=== PATIENT | male | born 1940 | race Caucasian/White ===

== ENCOUNTER 2022-02-01 18:23 | Observation (INO) | payer MEDICARE, OTHER, SELFPAY ==
[2022-02-01] VITALS (34 sets, daily range): BP systolic 109–135; BP diastolic 46–65; PULSE 45–63; RESP 11–47; TEMP 36.7; O2SAT 83–100
--- NOTE | ~2022-02-01 | XR_ITS ---
EXAMINATION: XR chest 1V portable Exam Date/Time: 02/01/2022 19:10 LOSS PREVENTION RESEARCH ENGINEER HISTORY: CONFUSION/ALTERED MENTAL STATUS. NO CHEST COMPLAINTS Comparison: None available. RESULT: Lines, tubes, and devices: Intact sternotomy wires. Mediastinal surgical clips.. Lungs and pleura: Low lung volumes with crowding. Linear scar/atelectasis in the left lung base. Cardiomediastinal silhouette: Arch calcification, otherwise unremarkable. Other: No acute osseous or upper abdominal finding. IMPRESSION: No acute cardiopulmonary process. Reviewed, dictated and finalized at location K. PREVENTION RESEARCH ENGINEER
--- NOTE | ~2022-02-01 | MR_ITS ---
EXAMINATION: MRA brain wo con DATE: 02/03/2022 10:52 INDICATION: Transient ischemic episode with altered mental status and confusion. TECHNIQUE: Magnetic resonance angiography (MRA) of the brain was performed without intravenous contrast by the 3 D [id number] technique. COMPARISON: Brain MR dated 02/02/2022 FINDINGS: There is normal flow related signal seen within the vertebral, basilar and internal carotid arteries. There is no proximal stenosis. There are no aneurysms identified. Both A1 segments and the left P 1 segments are patent. Flow to the right posterior cerebral artery supplied via the right internal ca rotid artery and a patent right posterior communicating artery Flow in the cerebral arteries is symme tric. Old lacunar infarct in the left caudate nucleus. IMPRESSION: 1. No hemodynamically significant stenosis or aneurysm. 2. Normal anatomic variant of the [place] with the right posterior cerebral artery supplied exclusively via the right internal carotid artery and a patent right posterior communicating artery. IMPRESSION: 1. Reviewed, dictated and finalized at location A. ER LAYER IMPRESSION: 1. No hemodynamically significant stenosis or aneurysm. 2. Normal anatomic variant of the [place] with the right posterior cer ebral artery supplied exclusively via the right internal carotid artery and a p atent right posterior communicating artery. IMPRESSION: 1.
--- NOTE | ~2022-02-01 | MR_ITS ---
EXAMINATION: MR brain/brain stem wo/w con DATE: 02/02/2022 10:00 INDICATION: Altered mental status. Confusion. TECHNIQUE: Magnetic resonance imaging (MRI) of the brain and brainstem was performed without and with 19 cc MultiHance intravenous contrast. Sequences included sagittal and axial T1-weighted SE, axial d iffusion-weighted FS SE, axial T2*-weighted GRE, axial T2-weighted FLAIR Propeller, and axial T2-weig hted Propeller. Apparent diffusion coefficient (ADC) maps were created. COMPARISON: CT dated 02/01/2022. FINDINGS: There is a small chronic lacunar infarction of the left caudate nucleus. Brain parenchymal volume is normal for age. There are scattered mild periventricular and subcortical white matter noriega es, most likely related to small vessel ischemic disease (microangiopathy). No acute infarction or he morrhage. Midline sagittal images are unremarkable. No abnormal contrast enhancement. No masses or ma ss effect. No significant abnormality of the paranasal sinuses. Orbits are symmetric without disconju gate gaze. IMPRESSION: 1. No acute intracranial abnormality. 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 3: Chronic age-related findings. Reviewed, dictated and finalized at location A. R SPONGER
--- NOTE | ~2022-02-01 | US_ITS ---
EXAMINATION: US carotid duplex BI DATE: 02/02/2022 22:53 INDICATION: Concern for transient ischemic episode TECHNIQUE: Grayscale, color Doppler, and pulsed Doppler images of the cervical carotid arteries were obtained. The degree of vessel stenosis is placed in one of the following categories: normal, <50%, 5 0-69%, >=70% but less than near-occlusion, near-occlusion, or total occlusion. Note that percent sten osis relative to normal distal artery lumen diameter is indirectly measured from velocity measurement s as described by Jorge A, et al. Radiology 2003; 229:340-346. COMPARISON: None. FINDINGS: RIGHT: The right common carotid artery (CCA) peak systolic velocity (PSV) is 95 cm/s. The right internal car otid artery (ICA) PSV is 152 cm/s. The right ICA end-diastolic velocity (EDV) is 34 cm/s. The right I CA/CCA PSV ratio is 1.6. Grayscale and color Doppler images including secondary Doppler criteria yiel d an estimate of <50% diameter reduction from plaque in the ICA. The external carotid artery (ECA) PS V is 157 cm/s. There is antegrade flow in the right vertebral artery. LEFT: The left CCA PSV is 123 cm/s. The left ICA PSV is 157 cm/s. The left ICA EDV is 31 cm/s. The left ICA /CCA PSV ratio is 1.3. Grayscale and color Doppler images including secondary Doppler criteria yield an estimate of <50% diameter reduction from plaque in the ICA. The ECA PSV is 173 cm/s. There is ante grade flow in the left vertebral artery. IMPRESSION: 1. <50% stenosis in the right internal carotid artery. 2. <50% stenosis in the left internal carotid artery. Reviewed, dictated and finalized at location A. MAKER
--- NOTE | ~2022-02-01 | CT_ITS ---
EXAMINATION: CT brain wo con DATE: 02/01/2022 19:04 INDICATION: altered mental status . TECHNIQUE: Computed tomography (CT) of the head was performed without intravenous contrast. The mA wa s adjusted according to patient size. Iterative reconstruction technique was employed. The dose-lengt h product was 605.33 mGy-cm. COMPARISON: None FINDINGS: No acute intracranial hemorrhage or extra-axial fluid collection. No hydrocephalus, mass, or herniation. No acute ischemic infarct. Unremarkable dural venous sinus attenuation. No acute osseous abnormality. The aerated spaces are clear. Mild atrophy and chronic white matter change. Atherosclerotic intracranial calcification. Bilateral l ens replacements. IMPRESSION: No acute intracranial process. Reviewed, dictated and finalized at location K. STAPLER WELT
--- NOTE | 2022-02-01 18:47 | ECG_ITS ---
Measurements Intervals [place] Rate: 52 P: 38 NC: 172 QRS: 52 QRSD: 162 T: 60 QT: 429 QTc: 399 Interpretive Statements SINUS BRADYCARDIA RIGHT BUNDLE BRANCH BLOCK [120+ ms QRS DURATION, UPRIGHT V1, 40+ ms S IN I/aVL/V4/V5/V6] NO PREVIOUS ECG AVAILABLE FOR COMPARISON Electronically Signed On 02-02-2022 15:23:35 [employer] by Ruth Ann Hurst M.D.
--- NOTE | 2022-02-01 19:06 | ED.AMS ---
HPI - Altered Mental Status General Chief Complaint: Altered Mental Status Stated Complaint: AMS @ 1700, NOW A & O X3 Time Seen by Provider: 02/01/22 18:50 History of Present Illness HPI narrative: 81-year-old male history of hypertension, high cholesterol, quadruple bypass, chronic kidney disease presents today via EMS with currently at the bedside for altered mental status. Patient's stated about 530 this evening they were eating supper when he became confused with slurred speech. She noticed bilateral upper extremity weakness and called 911. Per RN EMS stated patient was alert and oriented x3 during transfer. Patient is currently confused alert to self. He is able to follow directions. Is aware that he is here to get his brain checked out . Review of Systems Review of Systems: CONSTITUTIONAL: Denies fever, chills, or sweats. EYES: Denies visual changes, redness, or discharge. CARDIOVASCULAR: Denies chest pain, palpitations, or edema. RESPIRATORY: Denies cough or dyspnea. GASTROINTESTINAL: Denies abdominal pain, nausea, vomiting, or diarrhea. GENITOURINARY: Denies dysuria or hematuria. SKIN: Denies rash or itching. MUSCULOSKELETAL: Denies back pain, joint pain, or myalgia. NEUROLOGIC: Endorses confusion. Denies headache, numbness, dizziness, or weakness. PSYCHIATRIC: Denies anxiety or depression. Exam Narrative: GENERAL: Well-appearing, well-nourished, and in no acute distress. HEAD: Normocephalic, atraumatic. EYES: PERRLA and EOMI. NECK: Supple. No adenopathy or masses. No carotid bruits or JVD CHEST: Clear to auscultation. No respiratory distress. No wheezes rales or rhonchi HEART: Regular rate and rhythm. No murmur heard. Normal peripheral pulses. ABDOMEN: Soft, nontender, nondistended, normal active bowel sounds. EXTREMITIES: Normal range of motion. No edema. SKIN: Warm, dry, no rash. NEURO: No focal deficits. Alert and oriented x2. NIH Stroke Scale/Score (NIHSS) from [employer] on 02/01/2022 All calculations should be rechecked by clinician prior to use RESULT SUMMARY: 2 points NIH Stroke Scale INPUTS: 1A: Level of consciousness ?> 0 = Alert; keenly responsive 1B: Ask month and age ?> 1 = 1 question right 1C: 'Blink eyes' & 'squeeze hands' ?> 0 = Performs both tasks 2: Horizontal extraocular movements ?> 0 = Normal 3: Visual banerjee ?> 0 = No visual loss 4: Facial palsy ?> 0 = Normal symmetry 5A: Left arm motor drift ?> 0 = No drift for 10 seconds 5B: Right arm motor drift ?> 0 = No drift for 10 seconds 6A: Left leg motor drift ?> 0 = No drift for 5 seconds 6B: Right leg motor drift ?> 0 = No drift for 5 seconds 7: Limb Ataxia ?> 0 = No ataxia 8: Sensation ?> 0 = Normal; no sensory loss 9: Language/aphasia ?> 0 = Normal; no aphasia 10: Dysarthria ?> 1 = Mild-moderate dysarthria: slurring but can be understood 11: Extinction/inattention ?> 0 = No abnormality PSYCH: Normal mood and affect. Course Reevaluation(s) Reevaluation #1: Patient back to baseline NIH Stroke Scale/Score (NIHSS) from [employer] on 02/01/2022 All calculations should be rechecked by clinician prior to use RESULT SUMMARY: 0 points NIH Stroke Scale INPUTS: 1A: Level of consciousness ?> 0 = Alert; keenly responsive 1B: Ask month and age ?> 0 = Both questions right 1C: 'Blink eyes' & 'squeeze hands' ?> 0 = Performs both tasks 2: Horizontal extraocular movements ?> 0 = Normal 3: Visual banerjee ?> 0 = No visual loss 4: Facial palsy ?> 0 = Normal symmetry 5A: Left arm motor drift ?> 0 = No drift for 10 seconds 5B: Right arm motor drift ?> 0 = No drift for 10 seconds 6A: Left leg motor drift ?> 0 = No drift for 5 seconds 6B: Right leg motor drift ?> 0 = No drift for 5 seconds 7: Limb Ataxia ?> 0 = No ataxia 8: Sensation ?> 0 = Normal; no sensory loss 9: Language/aphasia ?> 0 = Normal; no aphasia 10: Dysarthria ?> 0 = Normal 11: Extinction/inattention ?> 0 = No abnormality Date: 02/01/22 Time: 20:04 Consultations
--- NOTE | 2022-02-01 19:08 | PC.NURSE ---
Patient taken CT scan
[2022-02-01 19:49] LABS: Basophils Percent Auto 0.4 % (0.2-1.2); Eosinophils Absolute Auto 0.1 K/mm3 (0-0.3); Eosinophils Percent Auto 1.4 % (0-4.4); Hematocrit 38.1 % (42.0-52.0); Hemoglobin 12.8 g/dL (14.0-18.0); Immature Granulocyte Absolute 0.01 K/mm3 (0.00-0.031); Immature Granulocyte Percent A 0.1 % (0-0.5); Lymphocytes Absolute Auto 1.38 K/mm3 (0.9-3.2); Lymphocytes Percent Auto 19.5 % (18.3-44.2); Mean Corpuscular HGB Conc 33.6 g/dl (32-36); Mean Corpuscular Hemoglobin 29.8 pg (26-34); Mean Corpuscular Volume 88.6 fl (80-100); Mean Platelet Volume 9.9 fl (7.4-10.4); Monocytes Absolute Auto 0.7 K/mm3 (0.1-0.6); Monocytes Percent Auto 9.2 % (2.6-8.5); Neutrophils Absolute Auto 4.9 K/mm3 (1.3-6.7); Neutrophils Percent Auto 69.4 % (45.5-73.1); Platelet Count Result 212 k/mm3 (150-375); Red Cell Distribution Width 12.3 % (11.5-14.5); White Blood Count 7.1 K/mm3 (4.5-10.0)
--- NOTE | 2022-02-01 19:57 | PC.NURSE ---
Patient bedside glucose 98
[2022-02-01 19:58] LABS: Glucose Point of Care 98 mg/dl (65-105)
[2022-02-01 19:59] LABS: Ethanol < 10 mg/dL (<10)
[2022-02-01 20:03] LABS: Prothrombin Time 13.2 Seconds (11.1-14.7)
[2022-02-01 20:04] LABS: Partial Thromboplastin Time 29.6 SECONDS (22.3-36.8)
[2022-02-01 20:14] LABS: Alanine Aminotransferase 31 U/L (6-50); Albumin Level 4.1 g/dL (3.5-5.1); Alkaline Phosphatase 54 U/L (38-126); Anion Gap 8 mmol/L (8-16); Aspartate Amino Transferase 30 U/L (17-59); Bilirubin,Total 0.8 mg/dL (0.2-1.3); Blood Urea Nitrogen 35 mg/dL (9-20); Carbon Dioxide 23 mmol/L (22-30); Chloride 106 mmol/L (98-107); Estimated Glomerular Filt Rate 24; Glucose 97 mg/dL (65-110); Potassium 4.1 mmol/L (3.4-5.0); Sodium 137 mmol/L (137-145)
[2022-02-01 20:26] LABS: Troponin I < 0.012 ng/mL (0.000-0.034)
[2022-02-01 20:51] LABS: Appearance Urine Clear (Clear); Bilirubin Urine Negative (Negative); Blood Urine Negative (Negative); Color Urine Yellow (Yellow); Glucose Urine UA Negative (Negative); Ketones Urine Negative (Negative); Leukocyte Esterase Ur Negative LEU/UL (Negative); Nitrate Urine Negative (Negative); Protein Urine Negative (Negative); Urobilinogen Urine 0.2 mg/dL (<2.0); pH Urine 5.5 (5.0-9.0)
[2022-02-01 20:55] LABS: Alanine Aminotransferase 32 U/L (6-50); Albumin Level 4.1 g/dL (3.5-5.1); Alkaline Phosphatase 59 U/L (38-126); Anion Gap 9 mmol/L (8-16); Aspartate Amino Transferase 33 U/L (17-59); Bilirubin,Total 0.9 mg/dL (0.2-1.3); Blood Urea Nitrogen 36 mg/dL (9-20); Calcium 9.1 mg/dL (8.4-10.2); Carbon Dioxide 22 mmol/L (22-30); Chloride 109 mmol/L (98-107); Estimated Glomerular Filt Rate 24; Glucose 99 mg/dL (65-110); Potassium 4.1 mmol/L (3.4-5.0); Sodium 140 mmol/L (137-145)
[2022-02-01 20:56] LABS: Mucus Urine Rare /lpf; RBC Urine 0-2 /hpf (0-2); WBC Urine 0-3 /hpf
[2022-02-01 20:57] LABS: Add Urine Microscopic? NO
[2022-02-01 21:24] LABS: INR 1.1; Partial Thromboplastin Time 30.4 SECONDS (22.3-36.8); Prothrombin Time 13.4 Seconds (11.1-14.7)
[2022-02-01 22:23] LABS: SARS-CoV-2 RNA PCR Negative
[2022-02-02] VITALS (75 sets, daily range): BP systolic 72–146; BP diastolic 43–78; PULSE 44–74; RESP 13–32; TEMP 36.4–36.8; O2SAT 85–100; BMI 30.4
--- NOTE | 2022-02-02 01:22 | PC.NURSE ---
Patient to be admitted. Awaiting bed assignment.
--- NOTE | 2022-02-02 03:42 | PC.NURSE ---
Patient resting well. Awakens easily. Denies any discomfort.
--- NOTE | 2022-02-02 04:14 | PM.IMHP ---
H&P: HPI History of Present Illness Date/Time: 02/02/22 04:14 Chief Complaint: altered mental status Narrative: This is an 81-year-old male with past medical history significant for coronary artery disease status post coronary artery bypass graft, chronic kidney disease, hypertension. Patient was brought to the emergency room after having lunch in the afternoon he had an episode of speech disturbance in which he was mumbling words and he became slightly unresponsive looking down, however no loss of consciousness, no syncope. patient has been in his usual state of health prior to this denies any fevers, rigors, chills, cough, sputum production, chest pain, abdominal pain, diarrhea, nausea, vomiting, no focal weakness although it states that his left arm feels weaker, no gait disturbance. Preliminary workup was significant for: head CT was reported asFINDINGS: No acute intracranial hemorrhage or extra-axial fluid collection. No hydrocephalus, mass, or herniation. No acute ischemic infarct. Unremarkable dural venous sinus attenuation. No acute osseous abnormality. The? aerated spaces are clear. Mild atrophy and chronic white matter change. Atherosclerotic intracranial calcification. Bilateral lens replacements. IMPRESSION:? No acute intracranial process. basic metabolic profile was significant for a creatinine of 2.6 no prior value currently available for comparison a chest x-ray was reported as: IMPRESSION: No acute cardiopulmonary process. patient tested negative for COVID Review of Systems Review of Systems: altered mental status speech disturbance Constitutional: Constitutional: Denies chills, Denies fever(s), Denies malaise and Denies night sweats Eyes: Eyes: Reports diplopia ENT: Denies dysphagia, Denies vertigo, Denies dizziness, Denies odynophagia and Denies disequilibrium Cardiovascular: Cardiovascular: Denies chest pain, Denies syncope, Denies leg edema, Denies lightheadedness and Denies palpitations Respiratory: Respiratory: Denies chest congestion, Denies cough and Denies excessive phlegm production Gastrointestinal: Gastrointestinal: Denies abdominal pain, Denies dyspepsia, Denies heartburn, Denies diarrhea, Denies nausea and Denies vomiting Genitourinary: Genitourinary: Reports no additional male genitourinary complaints, Reports as per HPI and Denies dysuria Musculoskeletal: Musculoskeletal: Reports muscle weakness Integumentary/Breasts: Skin/Breast: Denies rash Neurologic: Denies vertigo, Denies dizziness, Denies focal weakness and Denies Sensory deficit (Neuro) Psychiatric: Psychiatric: Reports no additional psychiatric complaints and Reports as per HPI Endocrine: Endocrine: Denies cold intolerance, Denies flushing, Denies heat intolerance, Denies polyphagia, Denies polydipsia and Denies palpitations Hematologic/Lymphatic: Hematologic/Lymphatic: Reports no additional hematologic/lymphatic complaints and Reports as per HPI Allergic/Immunologic: Allergic/Immunologic: Reports no additional allergic/immunologic complaints and Reports as per HPI Meds Vital Signs Vital Signs - 24 hr 02/01/22 18:37 02/01/22 18:39 02/01/22 18:40 Temperature 98.1 F Pulse Rate 61 61 61 Respiratory Rate 16 21 H 19 Blood Pressure 125/54 L 125/54 L Pulse Oximetry 99 99 98 Oxygen Delivery Room Air 02/01/22 18:45 02/01/22 19:05 02/01/22 19:06 Temperature Pulse Rate 56 L 57 L 57 L Respiratory Rate 16 11 L 25 H Blood Pressure 134/60 Pulse Oximetry 98 99 100 Oxygen Delivery 02/01/22 19:15 02/01/22 19:30 02/01/22 19:31 Temperature Pulse Rate 55 L 57 L 54 L Respiratory Rate 21 H 19 47 H Blood Pressure 128/53 L Pulse Oximetry 99 Oxygen Delivery 02/01/22 19:45 02/01/22 20:00 02/01/22 20:01 Temperature Pulse Rate 52 L 53 L 54 L Respiratory Rate 24 H 19 23 H Blood Pressure 127/46 L Pulse Oximetry 100 100 99 Oxygen Delivery 02/01/22 20:15 02/01/22 20:
[2022-02-02 06:58] LABS: Basophils Percent Auto 0.4 % (0.2-1.2); Eosinophils Absolute Auto 0.2 K/mm3 (0-0.3); Eosinophils Percent Auto 2.1 % (0-4.4); Hematocrit 35.9 % (42.0-52.0); Hemoglobin 12.3 g/dL (14.0-18.0); Immature Granulocyte Absolute 0.03 K/mm3 (0.00-0.031); Immature Granulocyte Percent A 0.4 % (0-0.5); Lymphocytes Absolute Auto 1.59 K/mm3 (0.9-3.2); Lymphocytes Percent Auto 20.6 % (18.3-44.2); Mean Corpuscular HGB Conc 34.3 g/dl (32-36); Mean Corpuscular Hemoglobin 29.9 pg (26-34); Mean Corpuscular Volume 87.1 fl (80-100); Mean Platelet Volume 9.7 fl (7.4-10.4); Monocytes Absolute Auto 0.8 K/mm3 (0.1-0.6); Neutrophils Absolute Auto 5.2 K/mm3 (1.3-6.7); Neutrophils Percent Auto 66.5 % (45.5-73.1); Platelet Count Result 195 k/mm3 (150-375); Red Blood Count 4.12 M/mm3 (4.6-6.20); Red Cell Distribution Width 12.2 % (11.5-14.5); White Blood Count 7.7 K/mm3 (4.5-10.0)
[2022-02-02 07:11] LABS: Anion Gap 6 mmol/L (8-16); Blood Urea Nitrogen 35 mg/dL (9-20); Calcium 8.7 mg/dL (8.4-10.2); Carbon Dioxide 22 mmol/L (22-30); Chloride 108 mmol/L (98-107); Estimated Glomerular Filt Rate 29; Glucose 84 mg/dL (65-110); Potassium 3.8 mmol/L (3.4-5.0); Sodium 136 mmol/L (137-145)
--- NOTE | 2022-02-02 08:05 | PC.NURSE ---
dietary contacted for breakfast tray. pt denies other needs
--- NOTE | 2022-02-02 10:04 | PC.NURSE ---
return from mri
--- NOTE | 2022-02-02 10:48 | WPDNEURCNPN ---
Assessment and Plan Assessment and plan (1) TIA (transient ischemic attack): Code(s): G45.9 - Transient cerebral ischemic attack, unspecified Status: Acute (2) Altered mental status: Code(s): R41.82 - Altered mental status, unspecified Status: Acute (3) Coronary artery disease: Code(s): I25.10 - Atherosclerotic heart disease of [place] coronary artery without angina pectoris Status: Acute (4) CKD (chronic kidney disease): Code(s): N18.9 - Chronic kidney disease, unspecified Status: Acute Plan Odalys Rea is a 81 year old male with a history of HTN, HLD, CKD, quadruple bypass who presented due to altered mental status with transient episode of slurred speech and bilateral upper extremity weakness that self-resolved. MRI negative for acute stroke. Concern for TIA. - MRA brain w/o contrast and carotid doppler studies - Surface echo with bubble study - Continue ASA 81mg daily - Continue Lipitor 80 mg daily - Discussed no until 6 months event free Consult date: 02/02/22 Reason for consult: TIA HPI: Odalys Rea is a 81 year old male with a history of HTN, HLD, CKD, quadruple bypass who presented due to altered mental status. Yesterday around 530PM while patient was eating dinner, noted that he appeared confused with slurred speech and had bilateral upper extremity weakness. Patient has no recollection of the episode. asked him to smile and noted that his face was symmetric. She then asked him to squeeze her hands and she noted that both sides were weak. EMS was called and they noted patient to be AOx3. He was taken to [facility] ED where he was AOx2 on arrival. His BP was in the 120s systolic. His initial NIH was 2 due to slurred speech and difficulty answer question, but repeat NIH was 0 and patient returned back to baseline. CT head was negative for acute process. His GFR is 29 so CTA brain/carotid was not obtained. MRI brain has been completed and showed no evidence of acute stroke, but does have old left lacunar infarct. Patient takes daily ASA 81mg and Lipitor 80mg daily. Review of Systems Constitutional: Constitutional: Reports weakness Eyes: Eyes: Reports no additional eye complaints ENT: Reports system reviewed and no additional complaints, except as documented Cardiovascular: Cardiovascular: Reports no additional cardiovascular complaints Respiratory: Respiratory: Reports no additional respiratory complaints Gastrointestinal: Gastrointestinal: Reports no additional gastrointestinal complaints Genitourinary: Genitourinary: Reports no additional male genitourinary complaints Musculoskeletal: Musculoskeletal: Reports no additional musculoskeletal complaints Integumentary/Breasts: Skin/Breast: Reports system reviewed and no additional complaints, except as docu Neurologic: Reports as per HPI Psychiatric: Psychiatric: Reports no additional psychiatric complaints PMFSH Social History Social History Smoking status: Former smoker Lack of Transportation: No Lack of Food: Never True Current Housing: I Have Housing Concerned About Future Housing: No Difficulty Paying Gas/Electric Bills: No Difficulty Paying for Meds: No Currently Unemployed: No Education: High School Diploma/GED Difficulty w/ Childcare or Family Care: No Spiritual care concerns: No Meds Home Medications and Allergies Home Medications Medication Instructions Recorded Confirmed Type atenolol 50 mg tablet 25 mg PO DAILY 02/02/22 02/02/22 History atorvastatin 80 mg tablet 80 mg PO DAILY 02/02/22 02/02/22 History calcitriol 0.5 mcg capsule 0.5 mcg PO DAILY 02/02/22 02/02/22 History ergocalciferol (vitamin D2) 1,250 1,250 mcg PO MONTHLY 02/02/22 02/02/22 History mcg (50,000 unit) capsule ezetimibe 10 mg tablet 10 mg PO DAILY 02/02/22 02/02/22 History furosemide 20 mg tablet 20 mg PO DAILY 02/02/22 02/02/22 H
--- NOTE | 2022-02-02 12:26 | PC.NURSE ---
neurology at bedside
--- NOTE | 2022-02-02 14:07 | ADMGEN ---
This patient, Odalys Rea, was admitted to Medical Room 252-01. Patient/family oriented to hospital policies and general routines including ID bracelet, bed and alarms, visiting hours, pain management, procedures, bathroom and other care routines, personal items, smoking policy, room service/diet, and visiting hours. Information on how to activate the Rapid Response Team has been discussed. Patient/Family are encouraged to report perceived risks to care and to ask questions if they do not understand what they are told or what they should do.
--- NOTE | 2022-02-02 18:23 | PM.IMPN ---
Progress Note: A&P Assessment and Plan (1) Altered mental status: Code(s): R41.82 - Altered mental status, unspecified Status: Acute Assessment and Plan: now resolved patient is back to his baseline CT of the head reviewed MRI of the brain pending 02/02/2022 interval history: patient remains clinically stable seen by Neurology recommended to further evaluate following tests. MRA brain w/o contrast and carotid doppler studies - Surface echo with bubble study - Continue ASA 81mg daily - Continue Lipitor 80 mg daily patient MRI of brain is normal, patient is clinically stable pending cardiac echo which will be done tomorrow, will monitor patient. (2) TIA (transient ischemic attack): Code(s): G45.9 - Transient cerebral ischemic attack, unspecified Status: Acute Assessment and Plan: patient likely had transient episode continue to monitor (3) CKD (chronic kidney disease): Code(s): N18.9 - Chronic kidney disease, unspecified Status: Acute Assessment and Plan: unknown prior values for creatinine patient usually follows up at outside hospital (4) Coronary artery disease: Code(s): I25.10 - Atherosclerotic heart disease of [place] coronary artery without angina pectoris Status: Acute Assessment and Plan: status post coronary artery bypass graft Subjective Date/time seen: 02/02/22 18:23 altered mental status HPI-Narrative: ?This is an 81-year-old male with past medical history significant for coronary artery disease status post coronary artery bypass graft, chronic kidney disease, hypertension.? Patient was brought to the emergency room after having lunch in the afternoon he had an episode of? speech disturbance in which he was mumbling words and he became slightly unresponsive looking down, however no loss of consciousness, no syncope.? patient has been in his usual state of health prior to this denies any fevers, rigors, chills, cough, sputum production, chest pain, abdominal pain, diarrhea, nausea, vomiting, no focal weakness although it states that his left arm feels weaker, no gait disturbance.??Preliminary workup was significant for: head CT was reported asFINDINGS: No acute intracranial hemorrhage or extra-axial fluid collection. No hydrocephalus, mass, or herniation. No acute ischemic infarct. Unremarkable dural venous sinus attenuation. No acute osseous abnormality. The? aerated spaces are clear. Mild atrophy and chronic white matter change. Atherosclerotic intracranial calcification. Bilateral lens replacements. 02/02/2022 interval history: patient remains clinically stable seen by Neurology recommended to further evaluate following tests. MRA brain w/o contrast and carotid doppler studies - Surface echo with bubble study - Continue ASA 81mg daily - Continue Lipitor 80 mg daily patient MRI of brain is normal, patient is clinically stable pending cardiac echo which will be done tomorrow, will monitor patient. Review of Systems Constitutional: Constitutional: Denies chills, Denies fever(s), Denies malaise and Denies night sweats Exam Narrative: Patient is comfortable, NAD HEENT: eyes are clear and none icteric LUNGS:CTA HEART: RR S1S2 ABD: BS+, Soft and nontender Lower extremities: no edema SKIN: nonjaundiced Neuro: grossly intact. Objective Data Vital Signs Vital Signs: Vital Signs - 24 hr 02/01/22 18:37 02/01/22 18:39 02/01/22 18:40 Temperature 98.1 F Pulse Rate 61 61 61 Respiratory Rate 16 21 H 19 Blood Pressure 125/54 L 125/54 L Pulse Oximetry 99 99 98 Oxygen Delivery Room Air 02/01/22 18:45 02/01/22 19:05 02/01/22 19:06 Temperature Pulse Rate 56 L 57 L 57 L Respiratory Rate 16 11 L 25 H Blood Pressure 134/60 Pulse Oximetry 98 99 100 Oxygen Delivery 02/01/22 19:15 02/01/22 19:30 02/01/22 19:31 Temperature Pulse Rate 55 L 57 L 54 L Respiratory Rate 21 H 19 47 H Blo
[2022-02-03] VITALS (7 sets, daily range): BP systolic 138–140; BP diastolic 47–62; PULSE 45–78; RESP 16–17; TEMP 36.6–37.2; O2SAT 98–100
--- NOTE | 2022-02-03 12:45 | ECHO_ITS ---
Patient Info Name: Odalys Rea Age: 81 years : 1940 Gender: Male Ht: 66 in Wt: 188 lbs BSA: 2.02 m2 HR: 65 bpm BP: 138 / 62 mmHg Heart Rhythm: Sinus Rhythm Technical Quality: Good Exam Date: 02/03/2022 2:11 PM Exam Location: [facility] Pulmonary Exam Room: 252 Patient Status: Inpatient Admit Date: 02/01/2022 Staff Ordering Physician: Ladan Joshi MD Hot Box Operator: Joann Naik RCS Attending Provider: Ladan Arzola MD Exam Type: CA echo doppler w bubble study Study Info Indications - cva AMS HX/O CAD GABG Complete two-dimensional, color flow and Doppler transthoracic echocardiogram is performed with agitated saline. Contrast/Agitated Saline Contrast/Ag. Saline: Agitated Saline Amount: 20.00 ml Administered By: Tamiko Payton RDCS Existing IV Access: Yes IV Access Condition: patent with no signs of infiltration Summary 1. Left ventricular chamber dimension is mildly enlarged. 2. Left ventricular systolic function is normal, estimated at 65-70%. 3. There is no increased left ventricular wall thickness. 4. The left ventricular diastolic function is grade II diastolic dysfunction. 5. No evidence for [id number]-uv-lryu interatrial shunt with injection of agitated saline with and without Valsalva. 6. There is mild mitral valve regurgitation. 7. There is trace tricuspid valve regurgitation. 8. No pulmonary hypertension, estimated pulmonary arterial systolic pressure is 31 mmHg. 9. There is no aortic valve stenosis. Left Ventricle Left ventricular chamber dimension is mildly enlarged. Left ventricular systolic function is normal, estimated at 65-70%. There is no increased left ventricular wall thickness. The left ventricular diastolic function is grade II diastolic dysfunction. Right Ventricle Right ventricular chamber dimension is normal. Right ventricular systolic function is normal. Left Atria Left atrial chamber dimension is moderately enlarged. Right Atria Right atrial chamber dimension is mildly enlarged. Atrial Septum No evidence for kntpi-lm-[id number] interatrial shunt with injection of agitated saline with and without Valsalva. Aortic Valve The aortic valve is trileaflet. There is mild aortic valve sclerosis. There is no aortic valve stenosis. There is mild aortic valve regurgitation. Pulmonic Valve The pulmonic valve is normal. There is mild pulmonic regurgitation. Mitral Valve The mitral valve has normal leaflets. There is mild mitral valve regurgitation. The mitral valve annulus is mildly calcified. Tricuspid Valve The tricuspid valve leaflets are normal. There is trace tricuspid valve regurgitation. No pulmonary hypertension, estimated pulmonary arterial systolic pressure is 31 mmHg. Pericardium/Pleural The pericardium appears normal. There is no pericardial effusion. Inferior Vena Cava Normal inferior vena cava with >50% collapse upon inspiration consistent with normal right atrial pressure, 5 mmHg. Aorta The aortic root size at the sinus of Valsalva is normal. There is mild aortic atherosclerosis. Left Ventricular Outflow Tract Name Value Normal LVOT 2D LVOT Diameter
--- NOTE | 2022-02-03 13:43 | PC.NURSE ---
On 02/03/22, the student, [Neda Gay], provided care and completed [employer] documentation on this patient. I have reviewed the student's documentation and agree with the findings.
--- NOTE | 2022-02-03 17:19 | PM.DS ---
DS: Admitting Diagnosis Discharge Date 02/03/2022 Admitting Diagnosis episode of? speech disturbance DS: Discharge Diagnosis Discharge Diagnosis (1) Altered mental status: Code(s): R41.82 - Altered mental status, unspecified Status: Acute Assessment and Plan: now resolved patient is back to his baseline CT of the head reviewed MRI of the brain pending 02/02/2022 interval history: patient remains clinically stable seen by Neurology recommended to further evaluate following tests. MRA brain w/o contrast and carotid doppler studies - Surface echo with bubble study - Continue ASA 81mg daily - Continue Lipitor 80 mg daily patient MRI of brain is normal, patient is clinically stable pending cardiac echo which will be done tomorrow, will monitor patient. (2) TIA (transient ischemic attack): Code(s): G45.9 - Transient cerebral ischemic attack, unspecified Status: Acute Assessment and Plan: patient likely had transient episode continue to monitor (3) CKD (chronic kidney disease): Code(s): N18.9 - Chronic kidney disease, unspecified Status: Acute Assessment and Plan: unknown prior values for creatinine patient usually follows up at outside hospital (4) Coronary artery disease: Code(s): I25.10 - Atherosclerotic heart disease of [place] coronary artery without angina pectoris Status: Acute Assessment and Plan: status post coronary artery bypass graft DS: Summary Hospital Course Reason for hospitalization: Narrative: ?This is an 81-year-old male with past medical history significant for coronary artery disease status post coronary artery bypass graft, chronic kidney disease, hypertension.? Patient was brought to the emergency room after having lunch in the afternoon he had an episode of? speech disturbance in which he was mumbling words and he became slightly unresponsive looking down, however no loss of consciousness, no syncope.? patient has been in his usual state of health prior to this denies any fevers, rigors, chills, cough, sputum production, chest pain, abdominal pain, diarrhea, nausea, vomiting, no focal weakness although it states that his left arm feels weaker, no gait disturbance.? Preliminary workup was significant for: Hospital Course: patient remains clinically stable seen by Neurology recommended to further evaluate following tests. MRA brain w/o contrast and carotid doppler studies - Surface echo with bubble study - Continue ASA 81mg daily - Continue Lipitor 80 mg daily patient MRI of brain is normal, patient is clinically stable pending cardiac echo which will be done tomorrow, will monitor patient. patient remained clinically stable he has no new complaints, was started on his medications, his ECHO was done but not read, patient is anxious to be discharged, will discharge the patient today and will follow up on the echo, i did review echo result next day call the patient spoke with his that echo was normal, and patient will follow up with his primary care provider. Time Spent with Patient Time attestation: Total time spent providing and/or coordinating discharge services: Exam Narrative: Patient is comfortable, NAD HEENT: eyes are clear and none icteric LUNGS:CTA HEART: RR S1S2 ABD: BS+, Soft and nontender Lower extremities: no edema SKIN: nonjaundiced Neuro: grossly intact. Discharge Plan Discharge Attending physician on discharge: Ladan Joshi Consulting providers: Aniyah Yang ; Ruth Ann Hurst ; Chandler Ferguson ; Rafael Doherty ; Salas Valentin Discharging Clinician: Ladan Joshi Patient Disposition: Home, Self-Care Activity: no driving Diet: heart healthy Discharge Instructions: patient instructed no driving until seen by primary care and permitted to drive, patient to follow with his primary care provider as soon as possible, echo is not read, will follow-up with his primar
== END 2022-02-03 18:00 | disposition home or self-care (01) ==
LOC: ANHED 21:02 → ANH2MED 02-02 13:45 → ANH3MEDSUR 02-04 10:41
PROVIDERS: Emergency Medicine; Admitting Provider Internal Medicine; Emergency Provider Nurse Practitioner Family; Visit Provider Family Medicine
DX: G45.9 Transient cerebral ischemic attack, unspecified (principal); R41.82 Altered mental status, unspecified; R00.1 Bradycardia, unspecified; I45.10 Unspecified right bundle-branch block; I51.89 Other ill-defined heart diseases; I34.0 Nonrheumatic mitral (valve) insufficiency; I25.10 Atherosclerotic heart disease of native coronary artery without angina pectoris; Z95.1 Presence of aortocoronary bypass graft; I12.9 Hypertensive chronic kidney disease with stage 1 through stage 4 chronic kidney disease, or unspecified chronic kidney disease; N18.9 Chronic kidney disease, unspecified; Z20.822 Contact with and (suspected) exposure to COVID-19; E78.5 Hyperlipidemia, unspecified; Z87.891 Personal history of nicotine dependence; Z79.899 Other long term (current) drug therapy
CPT/HCPCS: 36415; 70450; 70544; 70553; 71045; 80048; 80053; 80307; 81003; 82948; 84484; 85025; 85610; 85730; 93005; 93306; 93880; 96375; 99285; A9577; G0378; U0003; U0005